=== PATIENT | male | born 1975 | race Caucasian/White ===

== ENCOUNTER 2018-12-18 13:14 | Observation (INO) | payer OTHER ==
[~2018-12-18] VITALS: Ht 182.9 cm; Wt 95.2 kg
[2018-12-18 14:22] LABS: BASOPHILS ABSOLUTE AUTO 0.03 K/mm3 (0.00-0.23); BASOPHILS PERCENT AUTO 0 % (0-2); EOSINOPHILS ABSOLUTE AUTO 0.11 K/mm3 (0.00-0.68); EOSINOPHILS PERCENT AUTO 1 % (0-6); Hematocrit 40.1 % (37.0-53.0); IMMATURE GRAN ABSOLUTE AUTO 0.02 K/mm3 (0.00-0.10); IMMATURE GRAN PERCENT AUTO 0 % (0-1); LYMPHOCYTES ABSOLUTE AUTO 0.51 K/mm3 (0.84-5.20); LYMPHOCYTES PERCENT AUTO 7 % (21-46); MONOCYTES ABSOLUTE AUTO 0.67 K/mm3 (0.16-1.47); MONOCYTES PERCENT AUTO 9 % (4-13); Mean Corpuscular HGB 32.1 pg (26.0-34.0); Mean Corpuscular HGB Conc 32.4 g/dL (31.5-36.5); Mean Corpuscular Volume 99 fL (80-100); Mean Platelet Volume 11.4 fL (9.1-12.4); NEUTROPHILS PERCENT AUTO 83 % (41-73); Platelet Count 178 K/mm3 (150-400); RDW Coefficient Variation 12.7 % (11.7-14.2); Red Blood Cell Count 4.05 M/mm3 (4.30-5.90); White Blood Cell Count 7.84 K/mm3 (4.00-11.30)
[2018-12-18 14:47] LABS: Alanine Aminotransfer (ALT/SGP 43 U/L (12-78); Albumin, Blood 2.9 g/dL (3.4-5.0); Albumin/Globulin Ratio 0.7 (0.8-1.8); Alk Phos 75 U/L (50-136); Anion Gap 5 mmol/L (6-16); Aspartate Aminotrans (AST/SGOT 48 U/L (12-37); Bilirubin, Total 0.6 mg/dL (0.1-1.0); Blood Urea Nitrogen 19 mg/dL (8-24); Bun/Creatinine Ratio 19.5 (12.0-20.0); CO2, Blood 28 mmol/L (21-32); Calcium, Blood 8.8 mg/dL (8.5-10.1); Chloride, Blood 104 mmol/L (98-108); Creatinine, Blood 0.97 mg/dL (0.60-1.20); Ethanol (Alcohol), Blood, Med <3 mg/dL; Glomerular Filtration Rate >60 (60-); Glucose, Blood 93 mg/dL (70-99); Potassium, Blood 3.5 mmol/L (3.5-5.5); Salicylate 2.2 mg/dL (2.8-20.0); Sodium, Blood 137 mmol/L (136-145); Total Protein, Blood 6.9 g/dL (6.4-8.2)
[2018-12-18 14:55] LABS: Acetaminophen, Random <2.0 ug/mL (10.0-30.0)
[2018-12-18 15:23] LABS: Source, Urine Voided
[2018-12-18 15:32] LABS: Appearance, Urine Clear (Clear); Bilirubin, Urine Neg (Neg); Blood, Urine 2+ (Neg); Color, Urine Amber (P-Yellow); Glucose Qualitative, Urine Neg (Neg); Ketones, Urine 2+ (Neg); Leukocyte Esterase, Urine 1+ (Neg); Nitrite, Urine Neg (Neg); Protein, Urine 2+ (Neg); Urobilinogen, Urine 1+ (Normal)
[2018-12-18 15:37] LABS: Red Blood Cells, Urine 0-2 /hpf (0-2)
[2018-12-18] MEDS ORDERED: FOLI400 PO (15:37)
[2018-12-18] MEDS ORDERED: Thiamine HCl100 MG PO (15:37)
[2018-12-18] MEDS ORDERED: GABA300 PO (15:37)
[2018-12-18 15:38] LABS: Amorphous Light (0-Heavy); Bacteria Mod /hpf; Mucus Mod (0-Heavy); Squamous Epithelial Cells Not Seen /hpf (Few)
[2018-12-18] MEDS ORDERED: MELATONIN5 M1 PO (15:38)
[2018-12-18] MEDS ORDERED: THERA1 EACH PO (15:38)
[2018-12-18] MEDS ORDERED: CHLO25 PO (15:39)
[2018-12-18] MEDS ORDERED: LORA1 PO (15:41)
[2018-12-18] MEDS ORDERED: HYDPAM50 PO (15:41)
[2018-12-18] MEDS ORDERED: CLON.1 PO (15:42)
[2018-12-18] MEDS ORDERED: METO25ER PO (15:42)
[2018-12-18 15:43] LABS: U Amphetamine Screen DETECTED; U Barbituate Screen DETECTED; U Benzodiazapine Screen DETECTED; U Buprenorphine Screen Not Detected; U Cannabinoids Screen DETECTED; U Cocaine Screen Not Detected; U Methadone Screen Not Detected; U Methamphetamine Screen DETECTED; U Opiates Screen Not Detected; U Oxycodone Screen Not Detected; U Phencyclidine Screen Not Detected; U Propoxyphene Screen Not Detected
[2018-12-18] MEDS ORDERED: TRAZ50 PO (15:43)
[2018-12-18] MEDS ORDERED: PROM25 PO (15:43)
[2018-12-18] MEDS ORDERED: NICO21TP TOP (15:44)
== END 2018-12-21 09:46 | disposition home or self-care (01) ==
LOC: ER 13:14 → EOR 13:15
PROVIDERS: ADMIT Emergency Medicine
DX: F15.10 Other stimulant abuse, uncomplicated (principal); F10.10 Alcohol abuse, uncomplicated; F13.10 Sedative, hypnotic or anxiolytic abuse, uncomplicated; F29 Unspecified psychosis not due to a substance or known physiological condition; Y90.0 Blood alcohol level of less than 20 mg/100 ml
CPT/HCPCS: 51701; 80053; 81001; 84443; 85025; 87086; 93005; 93010; 99285-25; G0378; G0480; Q3014